=== PATIENT | male | born 1995 | race Caucasian/White ===

== ENCOUNTER 2020-09-17 12:05 | Emergency (ER) | payer BC ==
[2020-09-17] MEDS ORDERED: MORPHINE SULFATE 4 MG INJ ONE ×3 (12:08→12:42)
[2020-09-17] MEDS ORDERED: MORPHINE SULFATE 4 MG INJ IV ONE ×3 (12:08→12:38)
[2020-09-17] MEDS ORDERED: Sodium Chloride 0.9% 1000 ML 1,000 ML IV STA (12:09)
[2020-09-17] MEDS ORDERED: Zofran 4 MG/2 ML VIAL IV ONE (12:09)
[2020-09-17] MEDS ORDERED: Sodium Chloride 0.9% 1000 ML 1,000 ML ONE ×3 (12:12→13:02)
[2020-09-17] MEDS ORDERED: Adacel Vial IM ONE ×2 (12:13→12:29)
[2020-09-17] MEDS ORDERED: Zofran 4 MG/2 ML VIAL ONE (12:24)
[2020-09-17 12:30] LABS: Absolute Neutrophil Ct (ANC) 3.92 (1.4-6.9); BASOPHIL % 0.4 % (0.0-0.4); Basophil (Absolute #) 0.03 (0-0.4); Eosinophil % 1.1 % (0.00-5.0); Eosinophil (Absolute #) 0.08 (0-0.5); Hematocrit 45.5 % (42-50); Hemoglobin 15.4 gm/dl (12.5-18.0); Lymphocyte (Absolute #) 2.08 (1.0-4.6); Lymphocytes % 29.5 % (24.0-44.0); Mean Cell Volume 84.9 fl (78-100); Mean Corpuscular Hemoglobin 28.7 pg (26-32); Mean Corpuscular Hgb Concent. 33.8 g/dl (32-36); Monocyte (Absolute #) 0.95 (0.0-1.3); Monocytes % 13.5 % (0.0-12.0); Neutrophil % 55.5 % (36.0-66.0); Platelet Count 232 K/mm3 (150-450); Red Blood Count 5.36 M/mm3 (4.1-5.6); Red Cell Distribution Width 13.7 % (11.5-14.0); White Blood Count 7.1 K/mm3 (4.0-10.5)
[2020-09-17 12:46] LABS: ALBUMIN 4.7 g/dL (3.5-5.0); ALKALINE PHOSPHATASE 72 U/L (38-126); ANION GAP 13.5 MEQ/L (5-15); BLOOD UREA NITROGEN 12 mg/dL (9-20); CHLORIDE 103 mmol/L (98-107); CK-Creatinine Phosphokinase 131 U/L (55-170); Calcium 9.5 mg/dL (8.4-10.2); Carbon Dioxide 25 mmol/L (22-30); Creatinine 1 0.88 mg/dL (0.66-1.25); EST GLOMERULAR FILTRATION RATE > 60.0 ML/MIN; Glucose 98 mg/dL (74-106); Potassium 3.8 mmol/L (3.5-5.1); SGOT/AST 23 U/L (17-59); SGPT/ALT 16 U/L (0-50); SODIUM 137 mmol/L (137-145)
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
[2020-09-17 13:24] VITALS: BP 137/78; PULSE 110
[2020-09-17 13:48] VITALS: O2SAT 99
== END 2020-09-17 13:51 | disposition short-term general hospital (02) ==
LOC: ED 12:05
DX: T23.201A Burn of second degree of right hand, unspecified site, initial encounter (principal); T23.152A Burn of first degree of left palm, initial encounter; T20.12XA Burn of first degree of lip(s), initial encounter; T20.15XA Burn of first degree of scalp [any part], initial encounter; T31.0 Burns involving less than 10% of body surface; W86.8XXA Exposure to other electric current, initial encounter; Z23 Encounter for immunization
CPT/HCPCS: 36000; 36415; 80053; 82550; 84484; 85025; 90471; 90715; 93005; 96360; 96374; 96375; 96376; 99285; 99291; J2270; J2405